=== PATIENT | female | born 1940 | race Caucasian/White ===

== ENCOUNTER → 2017-01-16 | Outpatient (CLI) | payer MEDICARE, BC ==
--- NOTE | 2017-01-16 08:49 | XR ---
EXAMINATION TYPE: XR chest 2V DATE OF EXAM: 01/16/2017 8:33 AM COMPARISON: Prior chest x-ray 27 June 2016 HISTORY: Presurgical, COPD TECHNIQUE: Frontal and lateral views of the chest are obtained. FINDINGS: There is no focal air space opacity, pleural effusion, or pneumothorax seen. The cardiac silhouette size is within normal limits. Prominent lung volumes suggest underlying COPD. The osseous structures are intact. IMPRESSION: No acute cardiopulmonary process.
[2017-01-16 09:08] LABS: Partial Thromboplastin Time 23.2 sec (22.0-30.0); Prothrombin Time 10.4 sec (9.0-12.0)
== END | disposition home or self-care (01) ==
LOC: RADXRMAIN 08:22
PROVIDERS: ATTEND Family Medicine
DX: Z01.818 Encounter for other preprocedural examination (principal); Z01.812 Encounter for preprocedural laboratory examination
CPT/HCPCS: 71020; 85610; 85730

== ENCOUNTER → 2020-04-07 | Outpatient (CLI) | payer MEDICARE, BC ==
--- NOTE | 2020-04-07 10:44 | US ---
EXAMINATION TYPE: US duplex aorta DATE OF EXAM: 04/07/2020 COMPARISON: Outside report demonstrating focal ectasia of the abdominal aorta at approximately L3 beena suring 3.3 cm on a radiograph. CLINICAL HISTORY: R93.5 Abnormal findings. REPORT SCANNED IN EXAM MEASUREMENTS: Abdominal Aorta: Proximal: 2.6cm Mid: 2.1cm Distal: 1.8cm Bifurcation: Right: 0.8cm Left 0.6cm Mild atherosclerotic changes. IMPRESSION: No sonographic evidence of abdominal aortic aneurysm in the visualized portions of the ab dominal aorta. Mild atherosclerosis throughout. Outside imaging demonstrating mild ectasia of the abd ominal aorta could have related to obliquity on x-ray.
--- NOTE | 2020-04-08 08:00 | ECHOF ---
Referral Reason:R93.5 Abnormal findings MEASUREMENTS -------- HEIGHT: 154.9 cm WEIGHT: 63.5 kg BP: RVIDd: 3.8 cm (< 3.3) IVSd: 1.6 cm (0.6 - 1.1) LVIDd: 2.5 cm (3.9 - 5.3) LVPWd: 1.3 cm (0.6 - 1.1) IVSs: 2.1 cm LVIDs: 1.8 cm LVPWs: 1.7 cm LAESV Index (A-L): 23.77 ml/m Ao Diam: 3.2 cm (2.0 - 3.7) AV Cusp: 1.8 cm (1.5 - 2.6) LA Diam: 3.8 cm (2.7 - 3.8) MV E Dimitris: 0.53 m/s MV DecT: 109 ms MV A Dimitris: 1.25 m/s MV E/A Ratio: 0.42 RAP: 5.00 mmHg RVSP: 20.11 mmHg FINDINGS -------- Sinus rhythm. This was a technically adequate study. The left ventricular size is normal. There is moderate concentric left ventricular hypertrophy. O verall left ventricular systolic function is normal with, an EF between 60 - 65 %. The diastolic fi lling pattern is normal for the age of the patient 18.46. Possible LVOT Obstruction. The right ventricle is mild to moderately enlarged. Normal LA size by volume 22+/-6 ml/m2. The right atrial size is normal. Interatrial and interventricular septum intact. There is mild aortic valve sclerosis. There is no evidence of aortic regurgitation. There is no e vidence of aortic stenosis. Mild mitral annular calcification present. Mild mitral regurgitation is present. Mild tricuspid regurgitation present. There is no evidence of pulmonary hypertension. The right v entricular systolic pressure, as measured by Doppler, is 20.11mmHg. There is no pulmonic regurgitation present. The aortic root size is normal. Normal inferior vena cava with normal inspiratory collapse consistent with estimated right atrial pre ssure of 5 mmHg. There is no pericardial effusion. CONCLUSIONS -------- 1. Sinus rhythm. 2. This was a technically adequate study. 3. The left ventricular size is normal. 4. There is moderate concentric left ventricular hypertrophy. 5. Overall left ventricular systolic function is normal with, an EF between 60 - 65 %. 6. The diastolic filling pattern is normal for the age of the patient 18.46 7. Possible LVOT Obstruction. 8. The right ventricle is mild to moderately enlarged. 9. Normal LA size by volume 22+/-6 ml/m2. 10. The right atrial size is normal. 11. Interatrial and interventricular septum intact. 12. There is mild aortic valve sclerosis. 13. There is no evidence of aortic regurgitation. 14. There is no evidence of aortic stenosis. 15. Mild mitral annular calcification present. 16. Mild mitral regurgitation is present. 17. Mild tricuspid regurgitation present. 18. There is no evidence of pulmonary hypertension. 19. The right ventricular systolic pressure, as measured by Doppler, is 20.11mmHg. 20. There is no pulmonic regurgitation present. 21. The aortic root size is normal. 22. Normal inferior vena cava with normal inspiratory collapse consistent with estimated right atrial pressure of 5 mmHg. 23. There is no pericardial effusion. ACCOUNT FINANCIAL MANAGER: Emy Abreu RDCS
== END | disposition home or self-care (01) ==
LOC: RADUSWWP 09:48
PROVIDERS: ATTEND Family Medicine
DX: I77.811 Abdominal aortic ectasia (principal); I70.0 Atherosclerosis of aorta; R06.02 Shortness of breath; J44.9 Chronic obstructive pulmonary disease, unspecified
CPT/HCPCS: 93306; 93979

== ENCOUNTER 2020-10-30 09:17 | Emergency (ER) | payer MEDICARE, BC ==
[2020-10-30 09:26] VITALS: BP 187/84; PULSE 92; RESP 18; TEMP 98.5
--- NOTE | 2020-10-30 09:49 | ED ---
General Adult HPI - General Chief complaint: Neuro Symptoms/Deficit Stated complaint: Dizziness Time Seen by Provider: 10/30/20 09:29 Source: patient Mode of arrival: ambulatory Limitations: no limitations - History of Present Illness Initial comments: Dictation was produced using [employer] dictation software. please excuse any grammatical, word or spelling errors. This patient was cared for during a federal and state declared state of emergency secondary to Covid 19 Chief Complaint: 80-year-old female sent by [employer] consultant for episode of dizziness History of Present Illness: And 80-year-old female she has history of macular degeneration. Patient was at home when she got a coffee. She went to the front room and felt like she was walking in veering off to the left. Patient states in the summertime she had a similar episode where she thought she heard like a little pop in her head posture was driving. After that she felt like she was going to the right. After couple seconds she went back to be normal. She seen her [employer] consultant today and told him about that episode this morning and she was brought to the emergency department. Patient had her pupils dilated at the [employer] consultant office. Patient states she's going completely normal today. She does not feel like she needs to be here in emergency department. She is completely asymptomatic at this time. The ROS documented in this emergency department record has been reviewed and confirmed by me. Those systems with pertinent positive or negative responses have been documented in the HPI. All other systems are other negative and/or noncontributory. PHYSICAL EXAM: General Impression: Alert and oriented x3, not in acute distress HEENT: Normocephalic atraumatic, extra-ocular movements intact, pupils equal and reactive to light bilaterally, mucous membranes moist. Cardiovascular: Heart regular rate and rhythm Chest: Able to complete full sentences, no retractions, no tachypnea Abdomen: abdomen soft, non-tender, non-distended, no organomegaly Musculoskeletal: Pulses present and equal in all extremities, no peripheral edema Motor: no focal deficits noted Neurological: CN II-XII grossly intact, no focal motor or sensory deficits noted, no gait ataxia, no extremity ataxia Skin: Intact with no visualized rashes Psych: Normal affect and mood ED course: 80-year-old female presents to the emergency department for episode of walking to the left. Vital signs upon arrival are within acceptable limits. Patient physical examination is completely benign. EKG was obtained showing nonspecific findings. Discussed patient's EKG with the patient. She is told that she should follow-up with her primary care physician for nonspecific EKG. It's unclear whether this is her baseline EKG her concerning the patient has no symptoms at this time and is well-appearing and has not had any recent syncope, presyncope, palpitations chest pain or dyspnea s he'll be discharge. Return precautions discussed. EKG interpretation: Ventricular rate 80, normal sinus rhythm,. 1:30, QRS 92, QTc 463. No IN prolongation, no QTC prolongation, T-wave inversions in lead 1, aVL, V3 to V6. No ST elevation. No old EKG for comparison. Overall, this EKG is nonspecific - Related Data Home Medications Medication Instructions Recorded Confirmed Albuterol Inhaler [Ventolin Hfa 2 puff INHALATION RT-QID PRN 10/30/20 10/30/20 Inhaler] Albuterol Nebulized [Ventolin 2.5 mg INHALATION RT-QID PRN 10/30/20 10/30/20 Nebulized] Fluticasone/Vilanterol [Breo 3 puff INHALATION RT-DAILY 10/30/20 10/30/20 Ellipta 200-25 Mcg INH] Levothyroxine Sodium [Euthyrox] 50 mcg PO DAILY 10/30/20 10/30/20 Lutein 10 mg PO DAILY 10/30/20 10/30/20 Omeprazole 20 mg PO DAILY 10/30/20 10/30/20 Simvastatin [Zocor] 20 mg PO DAILY 10/30/20 10/30/20 hydroCHLOROthiazide 25 mg PO HS 10/30/20 10/30/20 Allergies Allergy/AdvReac Type Severity Reaction Status Date / Time No Known Allergies Allergy Verified 10/30/20 10:06 Review of Systems ROS Statement: Those systems with pertinent positive or pertinent negative responses have been documented in the HPI. ROS Other: All systems not noted in ROS Statement are negative. Past Medical History Past Medical History: COPD, Hyperlipidemia, Hypertension, Osteoarthritis (OA) Additional Past Medical History / Comment(s): macular degeneration History of Any Multi-Drug Resistant Organisms: None Reported Past Surgical History: Cholecystectomy, Orthopedic Surgery Additional Past Surgical History / Comment(s): knee, cataract Past Psychological History: No Psychological Hx Reported Smoking Status: Former smoker Past Alcohol Use History: None Reported Past Drug Use History: None Reported General Exam Limitations: no limitations Course Vital Signs 10/30/20 09:21 Temperature 98.5 F Pulse Rate 92 Respiratory 18 Rate Blood Pressure 187/84 O2 Sat by Pulse 95 Oximetry Disposition Clinical Impression: Abnormal EKG Disposition: HOME SELF-CARE Condition: Good Is patient prescribed a controlled substance at d/c from ED?: No Referrals: Jessica Hsieh MD [Primary Care Provider] - 1-2 days Time of Disposition: 10:19
== END 2020-10-30 10:36 | disposition home or self-care (01) ==
LOC: EC 09:17
DX: R94.31 Abnormal electrocardiogram [ECG] [EKG] (principal); I10 Essential (primary) hypertension; J44.9 Chronic obstructive pulmonary disease, unspecified; E78.5 Hyperlipidemia, unspecified; Z79.51 Long term (current) use of inhaled steroids; Z79.890 Hormone replacement therapy; Z79.899 Other long term (current) drug therapy; Z87.891 Personal history of nicotine dependence
CPT/HCPCS: 99284

== ENCOUNTER → 2020-11-20 | Outpatient (CLI) | payer MEDICARE, BC ==
--- NOTE | 2020-11-20 09:18 | CT ---
EXAMINATION TYPE: CT brain wo con DATE OF EXAM: 11/20/2020 HISTORY: Vertigo and dizziness. CT DLP: 1036 mGycm. Automated Exposure Control for Dose Reduction was Utilized. TECHNIQUE: CT scan of the head is performed without contrast. COMPARISON: None. FINDINGS: There is no acute intracranial hemorrhage or midline shift identified. There is diffuse v entricular and sulcal prominence consistent with diffuse age-related cerebral atrophy. There is low- attenuation in the periventricular white matter consistent with chronic small vessel ischemic change. No suspicious opacification mastoid air cells. The globes are intact and the visualized sinuses are clear. IMPRESSION: No acute intracranial hemorrhage or midline shift. There is mild diffuse age-related ce rebral atrophy and chronic small vessel ischemic change noted.
--- NOTE | 2020-11-20 12:40 | US ---
EXAMINATION TYPE: US carotid duplex BILAT DATE OF EXAM: 11/20/2020 COMPARISON: NONE CLINICAL HISTORY: 80-year-old female H53.8 H81.391. Dizziness, short visual disturbance TECHNIQUE: Carotid duplex ultrasound examination. Indirect Doppler criteria was utilized. FINDINGS: EXAM MEASUREMENTS: RIGHT: Peak Systolic Velocity (PSV) cm/sec ----- Right CCA: 86.4 ----- Right ICA: 79.2 ----- Right ECA: 108.3 ICA/CCA ratio: 0.9 RIGHT: End Diastole cm/sec ----- Right CCA: 24.0 ----- Right ICA: 14.6 ----- Right ECA: 16.9 LEFT: Peak Systolic Velocity (PSV) cm/sec ----- Left CCA: 87.9 ----- Left ICA: 114.9 ----- Left ECA: 72.6 ICA/CCA ratio: 1.3 LEFT: End Diastole cm/sec ----- Left CCA: 29.8 ----- Left ICA: 41.1 ----- Left ECA: 15.3 VERTEBRALS (direction of flow): Right Vertebral: Antegrade Left Vertebral: Antegrade Rhythm: Normal Life Science Teacher notes: No significant velocity elevations, minimal atherosclerotic changes. IMPRESSION: No hemodynamically significant internal carotid artery stenosis on either side. Criteria for Assigning % of Stenosis / Diameter reduction (Estimation based on the indirect measurements of the internal carotid artery velocities (ICA PSV). 1. Normal (no stenosis)=ICA PSV < 125 cm/s: ratio < 2.0: ICA EDV<40 cm/s. 2. Less than 50% stenosis=ICA PSV < 125 cm/s: ratio < 2.0: ICA EDV<40 cm/s. 3. 50 to 69% stenosis=ICA PSV of 125 to 230 cm/s: ration 2.0 ? 4.0: ICA EDV 40-100 cm/s. 4. Greater than 70% stenosis to near occlusion= ICA PSV > 230 cm/s: ratio > 4.0: ICA EDV > 100 cm/s. 5. Near occlusion= ICA PSV velocities may be low or undetectable: variable ratio and ICA EDV. 6. Total occlusion=unable to detect flow.
== END | disposition home or self-care (01) ==
LOC: RADCTMAIN 08:47
PROVIDERS: ATTEND Family Medicine
DX: G31.1 Senile degeneration of brain, not elsewhere classified (principal); I67.82 Cerebral ischemia; H81.391 Other peripheral vertigo, right ear
CPT/HCPCS: 70450; 93880

== ENCOUNTER → 2022-12-03 | Outpatient (CLI) | payer MEDICARE ==
--- NOTE | 2022-12-04 14:50 | CT ---
EXAMINATION TYPE: CT abdomen pelvis wo/w con CT DLP: 622.9 mGycm, Automated exposure control for dose reduction was used. DATE OF EXAM: 12/03/2022 5:04 PM COMPARISON: None CLINICAL INDICATION:Female, 82 years old with history of R63.4 abn weight loss, R19.4 change in bowel habit; abnormal weight loss, change in bowel habits TECHNIQUE: Axial CT of the abdomen and pelvis. Sagittal and coronal reformats were created on a [employer] workstation. Contrast used:70ml mL of Isovue 300 with IV Contrast, Oral contrast used: with Oral Contrast FINDINGS: LOWER CHEST: Unremarkable ABDOMEN LIVER: Unremarkable GALLBLADDER AND BILE DUCTS: Gallbladder surgically absent. PANCREAS: Unremarkable. SPLEEN: Unremarkable. ADRENAL GLANDS: Unremarkable. KIDNEYS AND URETERS: No evidence of hydronephrosis or renal calculus. The ureters are unremarkable. PELVIS BLADDER: Unremarkable REPRODUCTIVE: Right adnexal cysts in totality measure 4.5 x 3.4 x 5.9 cm ABDOMEN & PELVIS STOMACH AND BOWEL: There is some oral contrast within the distal esophagus. No evidence of bowel obst ruction. There is a large stool burden throughout the colon. PERITONEUM/RETROPERITONEUM: No evidence of pneumoperitoneum or free fluid. . VASCULATURE: No evidence of aortic aneurysm. Atherosclerosis of the arterial vasculature. MUSCULOSKELETAL: No acute osseous abnormalities, multilevel disc degeneration changes throughout the spine with osteoporosis changes of the hips. Grade 1 anterolisthesis of L4 on L5 LYMPH NODES: No gross evidence for lymphadenopathy. SOFT TISSUE/ABDOMINAL WALL: Unremarkable IMPRESSION: 1. Right adnexal cyst presumably ovarian measuring in totality up to 5.9 cm. Further evaluation with MRI and/or ultrasound is recommended. 2. No evidence for acute process in the abdomen. 3. Large stool burden throughout the colon. 4. Distal esophageal oral contrast could represent reflux versus esophageal dysmotility.
== END | disposition home or self-care (01) ==
LOC: RADCTMAIN 14:51
PROVIDERS: ATTEND Family Medicine
DX: N83.8 Other noninflammatory disorders of ovary, fallopian tube and broad ligament (principal); R63.4 Abnormal weight loss; R19.4 Change in bowel habit
CPT/HCPCS: 82565; 84520; 74178; 36415; Q9967 ×2

== ENCOUNTER → 2022-12-13 | Outpatient (CLI) | payer MEDICARE ==
--- NOTE | 2022-12-13 13:17 | US ---
EXAMINATION TYPE: US transvaginal DATE OF EXAM: 12/13/2022 COMPARISON: NONE CLINICAL HISTORY: N83.201 UNSPECIFIED OVARIAN CYST, RIGHT SIDE. right ovarian cyst TECHNIQUE: Transvaginal (TV). EXAM MEASUREMENTS: Uterus: 4.0 x 1.7 x 3.6 cm Endometrial Stripe: .23 cm 4 mm of fluid visualized within. Right Ovary: 2.8 x 1.8 x 2.2 cm all cystic no ovarian tissue visualized. 1. Uterus: Anteverted 2. Endometrium: 4 mm fluid visualized within. 3. Right Ovary: Cystic area with a septation 2.8 x 1.8 x 2.2 cm. 4. Left Ovary: Obscured by overlying bowel gas 5. Bilateral Adnexa: wnl 6. Posterior cul-de-sac: wnl IMPRESSION: 1. Septated cyst right ovary. Follow-up is recommended. 2. Fluid within the endometrial canal.
== END | disposition home or self-care (01) ==
LOC: RADUSWWP 12:39
PROVIDERS: ATTEND Family Medicine
DX: N83.201 Unspecified ovarian cyst, right side (principal)
CPT/HCPCS: 76830

== ENCOUNTER → 2023-03-17 | Outpatient (CLI) | payer MEDICARE ==
--- NOTE | 2023-03-17 13:48 | US ---
EXAMINATION TYPE: US transvaginal DATE OF EXAM: 03/17/2023 COMPARISON: US 12/13/22, CT 12/03/22 CLINICAL INDICATION: Female, 82 years old with history of N83.201 OVARIAN CYST RT SIDE; Ovarian cyst right side. G0. TECHNIQUE: Transvaginal (TV). Date of LMP: Patient states in her 40s. EXAM MEASUREMENTS: Uterus: 3.8 x 2.9 x 1.7 cm Endometrial Stripe: 0.25 cm Right Ovary: Not seen with certainty Left Ovary: Not seen 1. Uterus: Anteverted Heterogeneous. Complex area seen in cervix: 0.5 x 0.7 x 0.4 cm. Hyperechoic areas seen, largest measures 0.3 x 0.2 x 0.2 cm. 2. Endometrium: *Fluid seen within endo measuring 1.4 x 1.6 x 0.4 cm. 3. Right Ovary: Not seen with certainty. 4. Left Ovary: Not seen 5. Bilateral Adnexa: Complex area of mixed echogenicity seen within the right adnexa: 6.0 x 3.9 x 3.4 cm- questionable etiology. 6. Posterior cul-de-sac: Appears wnl Fluid in the endometrial canal is redemonstrated. Heterogeneous uterus again seen. No endometrial str ipe thickening. Incidental 5 mm nabothian cyst in the cervix. No free fluid. Persistent complex hypoechoic right adnexal mass with shadowing. Difficult to accurately measure due to irregular indistinct borders. It appears increased in size from most recent CT and ultrasound. IMPRESSION: Enlarging heterogeneous irregular right adnexal or ovarian mass. Neoplasm needs to be str ongly considered given increasing size. Advise gynecology oncology referral.
== END | disposition home or self-care (01) ==
LOC: RADUSWWP 12:40
PROVIDERS: ATTEND Family Medicine
DX: N83.201 Unspecified ovarian cyst, right side (principal)
CPT/HCPCS: 76830

== ENCOUNTER → 2024-02-11 | Outpatient (CLI) | payer MEDICARE ==
--- NOTE | 2024-02-11 18:03 | CA ---
Transthoracic Echo Report Name: Luis Moya Age: 83 Gender: F : 1940 Exam Date: 02/11/2024 13:44 Exam Location: [facility] Ht (in): 61 Wt (lb): 120 Ordering Physician: Montana Ibanez MD Attending/Referring Phys: Food Cashier Henry Min RDCS Procedure CPT: Indications: J44.9 CHRONIC OBSTRUCTIVE PULMONARY DISEASE Cardiac Hx: Technical Quality: Contrast 1: Total Dose (mL): Contrast 2: Total Dose (mL): MEASUREMENTS (Male / Female) Normal Values 2D ECHO LV Diastolic Diameter PLAX 2.9 cm 4.2 - 5.9 / 3.9 - 5.3 cm LV Systolic Diameter PLAX 1.9 cm IVS Diastolic Thickness 1.2 cm 0.6 - 1.0 / 0.6 - 0.9 cm LVPW Diastolic Thickness 1.2 cm 0.6 - 1.0 / 0.6 - 0.9 cm LV Relative Wall Thickness 0.8 LVOT Diameter 2.5 cm Aortic Root Diameter 2.9 cm LA Systolic Diameter LX 3.1 cm 3.0 - 4.0 / 2.7 - 3.8 cm LA Volume 47.4 cm??? 18 - 58 / 22 - 52 cm??? LA Volume Index 30.8 cm???/m??? 16 - 28 cm???/m??? DOPPLER AV Peak Velocity 271.8 cm/s AV Peak Gradient 29.6 mmHg AV Mean Velocity 158.3 cm/s AV Mean Gradient 12.6 mmHg AV Velocity Time Integral 36.7 cm LVOT Peak Velocity 354.8 cm/s LVOT Peak Gradient 50.3 mmHg LVOT Velocity Time Integral 52.0 cm LVOT Stroke Volume 258.2 cm??? LVOT Stroke Volume Index 169.8 ml/m??? AV Area Cont Eq vti 7.0 cm??? AV Area Cont Eq pk 6.5 cm??? MV Area PHT 5.0 cm??? MR Peak Velocity 601.8 cm/s MR Peak Gradient 144.9 mmHg Mitral E Point Velocity 64.2 cm/s Mitral A Point Velocity 133.2 cm/s Mitral E to A Ratio 0.5 MV Deceleration Time 152.5 ms MV E' Velocity 4.9 cm/s Mitral E to MV E' Ratio 13.0 TR Peak Velocity 280.1 cm/s TR Peak Gradient 31.4 mmHg PV Peak Velocity 92.6 cm/s PV Peak Gradient 3.4 mmHg FINDINGS Left Ventricle Left ventricular ejection fraction is estimated at 55-60 %. Asymmetric left ventricular hypertrophy. Hypertrophic obstructive cardiomyopathy with a peak gradient of 50 mmHg and a mean of 18 mmHg. Systolic anterior motion of the mitral valve leaflet. Right Ventricle Normal right ventricular size. Right ventricular systolic pressure estimated at 36 mmHg. Right Atrium Normal right atrial size. Left Atrium Mildly increased left atrial volume. Mitral Valve Htce-ae-cykeuesm mitral regurgitation.mild mitral annular calcification. Systolic anterior motion of the anterior mitral valve leaflet. Aortic Valve Mild aortic stenosis with a peak gradient of 35 mmHg and a mean gradient of 15 mmHg. Tricuspid Valve Mild tricuspid regurgitation.structurally normal tricuspid valve. Pulmonic Valve No pulmonic regurgitation.pulmonic valve not well visualized. Pericardium No pericardial effusion. Aorta Normal size aortic root. CONCLUSIONS 1. Normal left ventricle systolic function 2. Hypertrophic obstructive cardiomyopathy with a peak gradient of [address] 3. Mild to moderate mitral and mild tricuspid regurgitation 4. Mild aortic stenosis Previewed by: Dr. Matthew Montes MD (Electronically Signed) Final Date: 11 February 2024 18:02
== END | disposition home or self-care (01) ==
LOC: RADECHMAIN 13:33
PROVIDERS: ATTEND Internal Medicine Critical Care Medicine
DX: I42.1 Obstructive hypertrophic cardiomyopathy (principal); I07.1 Rheumatic tricuspid insufficiency; J44.9 Chronic obstructive pulmonary disease, unspecified
CPT/HCPCS: 93306

== ENCOUNTER → 2024-03-10 | Outpatient (CLI) | payer BC, MEDICARE ==
--- NOTE | 2024-03-10 15:48 | US ---
EXAMINATION TYPE: US transvaginal DATE OF EXAM: 03/10/2024 COMPARISON: 03/17/2023 CLINICAL INDICATION: Female, 83 years old with history of N83.201 OVARIAN CYST; Ovarian cyst F/U TECHNIQUE: Transvaginal (TV). medically necessary to better assess the following anatomy: Ovaries Date of LMP: in patients 40s EXAM MEASUREMENTS: Uterus: 4.5x1.6x2.8 cm Endometrial Stripe: 0.3 cm Right Ovary: obscured by overlying bowel Left Ovary: obscured by overlying bowel 1. Uterus: Anteverted peripheral calcifications, 0.5x0.4x0.4cm cystic area noted within the cervix a likely related to nabothian cyst. 2. Endometrium: fluid collection noted within 3. Right Ovary: cystic area likely arising from the ovary now measures 5.1x4.6x6.3cm 4. Left Ovary: Obscured by overlying bowel gas 5. Bilateral Adnexa: Obscured by overlying bowel gas 6. Posterior cul-de-sac: wnl exam limited by bowel gas IMPRESSION: 1. There is a small amount of fluid within the endometrium which be correlated clinically given the p atient's demographics. 2. There is a complex right adnexal cyst\cystic mass now measuring 5.1 x 6.3 cm increased in size fro m the prior exam. Ovarian malignancy in the differential diagnosis, recommend correlation with CA 125 .
== END | disposition home or self-care (01) ==
LOC: RADUSWWP 14:14
PROVIDERS: ATTEND Family Medicine
DX: N83.201 Unspecified ovarian cyst, right side (principal)
CPT/HCPCS: 76830